=== PATIENT | male | born 1970 | race African-American/Black ===

== ENCOUNTER 2021-02-12 17:47 | Inpatient (IN) | payer OTHER ==
[2021-02-12] MEDS ORDERED: LACTATED RINGERS SOLUTION 1000 ML INFUS.BAG IV ONE (18:21)
[2021-02-12] MEDS ORDERED: ACETAMINOPHEN 500 MG TABLET (FP) PO ONE (18:34)
[2021-02-12] MEDS ORDERED: DEXAMETHASONE SOD PHOSPHATE 10 MG/1 ML VIAL IVPUSH ONE (18:38)
[2021-02-12] MEDS ORDERED: ACETAMINOPHEN 325 MG TABLET (FP) ONE (18:52)
[2021-02-12] MEDS ORDERED: DEXAMETHASONE SOD PHOSPHATE 10 MG/1 ML VIAL ONE (18:53)
[2021-02-12 18:58] LABS: VENOUS BASE EXCESS 1.9 mmol/L (-2-2); VENOUS O2 SATURATION 83.3 % (70-80); VENOUS PCO2 33.3 mmHg (38-52); VENOUS PH 7.486 (7.310-7.410)
[2021-02-12 19:03] LABS: BASO % 0.3 % (0-2.0); HEMATOCRIT 42.5 % (35.4-49); HEMOGLOBIN 14.5 GM/dL (11.7-16.9); MCH 28.3 pg (25.7-33.7); MEAN CELL VOLUME 83.1 fl (80-96); MONO % 6.8 % (3.8-10.2); NEUT % 84.9 % (42.8-82.8); PLATELET COUNT 185 10^3/uL (134-434); RBC 5.11 M/mm3 (4.00-5.60); RDW 14.7 % (11.9-15.9)
[2021-02-12 19:17] LABS: INR 1.13 (0.83-1.09); PROTHROMBIN TIME (PATIENT) 13.9 SEC (9.7-13.0)
[2021-02-12 19:20] LABS: ACTIVATED PTT 31.2 SECONDS (25.2-36.5)
[2021-02-12 20:47] LABS: CHLORIDE 101 mmol/L (98-107); SODIUM 135 mmol/L (136-145)
[2021-02-12 20:49] LABS: ALBUMIN 3.6 g/dl (3.4-5.0); ANION GAP 11 MMOL/L (8-16); BLOOD UREA NITROGEN 18.8 mg/dL (7-18); CO2 24 mmol/L (21-32)
[2021-02-12 20:50] LABS: GLUCOSE,RANDOM 112 mg/dL (74-106)
[2021-02-12 20:52] LABS: CREATININE 1.6 mg/dL (0.55-1.3); SGOT/AST 91 U/L (15-37); SGPT/ALT 52 U/L (13-61)
[2021-02-12 20:54] LABS: BILIRUBIN,TOTAL 0.3 mg/dL (0.2-1); TOT PROT 7.5 g/dl (6.4-8.2)
[2021-02-12 20:55] LABS: ALK PHOS 47 U/L (45-117)
[2021-02-12 20:56] LABS: LDH 476 U/L (87-246)
[2021-02-12] MEDS ORDERED: ACETAMINOPHEN 325 MG TABLET (FP) PO PRN (23:36)
[2021-02-13 00:02] LABS: MAGNESIUM 1.8 mg/dL (1.8-2.4)
[2021-02-13 00:19] VITALS: BMI 28.8
[2021-02-13] MEDS: guaiFENesin 200 MG/10 ML 10 ML UNIT-DOSE CUPS PO PRN ×2 (04:19→21:05)
[2021-02-13 08:54] LABS: BASO % 0.4 % (0-2.0); HEMATOCRIT 41.8 % (35.4-49); HEMOGLOBIN 14.2 GM/dL (11.7-16.9); MCH 28.7 pg (25.7-33.7); MEAN CELL VOLUME 84.3 fl (80-96); MEAN PLT VOLUME 9.2 fl (7.5-11.1); MONO % 8.5 % (3.8-10.2); NEUT % 74.1 % (42.8-82.8); PLATELET COUNT 201 10^3/uL (134-434); RBC 4.96 M/mm3 (4.00-5.60); WHITE BLOOD COUNT 6.9 K/mm3 (4.0-10.0)
[2021-02-13] MEDS: CHOLECALCIFEROL (VIT D3) 1,000 UNIT (25 MCG) TABLET PO SCH (10:21)
[2021-02-13] MEDS: LOSARTAN POTASSIUM 50 MG TABLET PO SCH (10:21)
[2021-02-13] MEDS: ASCORBIC ACID 500 MG TABLET (FP) PO SCH ×2 (10:21→21:05)
[2021-02-13] MEDS: DEXAMETHASONE SOD PHOSPHATE 4 MG/1 ML VIAL IVPUSH SCH (10:21)
[2021-02-13] MEDS: ENOXAPARIN NA (PORCINE) 40 MG/0.4 ML DISP.SYRIN SQ SCH (10:21)
[2021-02-13] MEDS: ZINC SULFATE 220 MG CAPSULE (FP) PO SCH (10:21)
[2021-02-13 10:54] LABS: CALCIUM 8.6 mg/dL (8.5-10.1)
[2021-02-13 10:55] LABS: ALBUMIN 3.2 g/dl (3.4-5.0); BLOOD UREA NITROGEN 17.4 mg/dL (7-18)
[2021-02-13 10:58] LABS: CREATININE 1.2 mg/dL (0.55-1.3)
[2021-02-13 10:59] LABS: BILIRUBIN,TOTAL 0.4 mg/dL (0.2-1)
[2021-02-13 11:00] LABS: TOT PROT 7.1 g/dl (6.4-8.2)
[2021-02-13] MEDS ORDERED: REMDESIVIR 200 MG in SODIUM CHLORIDE 250 ML IVPB ONE (15:35)
[2021-02-13] MEDS: BUDESONIDE/FORMETEROL FUMARATE 160/4.5 mcg INHALER IH SCH (21:05)
[2021-02-14] MEDS: guaiFENesin 200 MG/10 ML 10 ML UNIT-DOSE CUPS PO PRN ×2 (04:37→16:28)
[2021-02-14] MEDS: ALBUTEROL SO4 HFA INHALER IH PRN ×2 (04:43→16:34)
[2021-02-14 09:00] LABS: HEMATOCRIT 39.9 % (35.4-49); HEMOGLOBIN 13.2 GM/dL (11.7-16.9); MCH 27.8 pg (25.7-33.7); MCHC 33.1 g/dl (32.0-35.9); MEAN CELL VOLUME 84.2 fl (80-96); MEAN PLT VOLUME 9.3 fl (7.5-11.1); PLATELET COUNT 208 10^3/uL (134-434); RBC 4.75 M/mm3 (4.00-5.60); RDW 14.8 % (11.9-15.9); WHITE BLOOD COUNT 11.9 K/mm3 (4.0-10.0)
[2021-02-14 09:20] LABS: BLOOD UREA NITROGEN 17.9 mg/dL (7-18)
[2021-02-14 09:24] LABS: BILIRUBIN,TOTAL 0.3 mg/dL (0.2-1); TOT PROT 6.7 g/dl (6.4-8.2)
[2021-02-14] MEDS ORDERED: PT OWN MED DRAWER 7, Y5N ONE ×2 (09:26→15:35)
[2021-02-14] MEDS: LOSARTAN POTASSIUM 50 MG TABLET PO SCH (09:35)
[2021-02-14] MEDS: DEXAMETHASONE SOD PHOSPHATE 4 MG/1 ML VIAL IVPUSH SCH (09:35)
[2021-02-14] MEDS: ASCORBIC ACID 500 MG TABLET (FP) PO SCH ×2 (09:35→21:06)
[2021-02-14] MEDS: SODIUM CHLORIDE 0.45% 1,000 ML IV SCH ×2 (09:35→22:39)
[2021-02-14] MEDS: ZINC SULFATE 220 MG CAPSULE (FP) PO SCH (09:35)
[2021-02-14] MEDS: CHOLECALCIFEROL (VIT D3) 1,000 UNIT (25 MCG) TABLET PO SCH (09:35)
[2021-02-14] MEDS: BUDESONIDE/FORMETEROL FUMARATE 160/4.5 mcg INHALER IH SCH ×2 (09:36→21:06)
[2021-02-14] MEDS: ENOXAPARIN NA (PORCINE) 40 MG/0.4 ML DISP.SYRIN SQ SCH (09:36)
[2021-02-14] MEDS ORDERED: ACETAMINOPHEN 325 MG TABLET (FP) PO PRN (10:36)
[2021-02-14] MEDS: REMDESIVIR 100 MG in SODIUM CHLORIDE 250 ML IVPB SCH (15:43)
[2021-02-15 09:43] LABS: HEMATOCRIT 39.8 % (35.4-49); HEMOGLOBIN 13.2 GM/dL (11.7-16.9); MCH 27.8 pg (25.7-33.7); MCHC 33.1 g/dl (32.0-35.9); MEAN PLT VOLUME 9.1 fl (7.5-11.1); PLATELET COUNT 247 10^3/uL (134-434); RBC 4.74 M/mm3 (4.00-5.60); RDW 15.2 % (11.9-15.9)
[2021-02-15] MEDS: CHOLECALCIFEROL (VIT D3) 1,000 UNIT (25 MCG) TABLET PO SCH (09:52)
[2021-02-15] MEDS: ENOXAPARIN NA (PORCINE) 40 MG/0.4 ML DISP.SYRIN SQ SCH (09:52)
[2021-02-15] MEDS: LOSARTAN POTASSIUM 50 MG TABLET PO SCH (09:52)
[2021-02-15] MEDS: ZINC SULFATE 220 MG CAPSULE (FP) PO SCH (09:52)
[2021-02-15] MEDS: ASCORBIC ACID 500 MG TABLET (FP) PO SCH ×2 (09:52→21:13)
[2021-02-15] MEDS: BUDESONIDE/FORMETEROL FUMARATE 160/4.5 mcg INHALER IH SCH ×2 (09:53→21:14)
[2021-02-15] MEDS: DEXAMETHASONE SOD PHOSPHATE 4 MG/1 ML VIAL IVPUSH SCH (09:53)
[2021-02-15 09:58] LABS: BLOOD UREA NITROGEN 16.6 mg/dL (7-18)
[2021-02-15 09:59] LABS: CALCIUM 8.1 mg/dL (8.5-10.1)
[2021-02-15 10:00] LABS: ALBUMIN 2.9 g/dl (3.4-5.0)
[2021-02-15 10:03] LABS: CREATININE 0.9 mg/dL (0.55-1.3)
[2021-02-15 10:04] LABS: BILIRUBIN,TOTAL 0.4 mg/dL (0.2-1); TOT PROT 6.8 g/dl (6.4-8.2)
[2021-02-15] MEDS: ALBUTEROL SO4 HFA INHALER IH PRN (12:03)
[2021-02-15] MEDS: REMDESIVIR 100 MG in SODIUM CHLORIDE 250 ML IVPB SCH (16:24)
[2021-02-15] MEDS: SODIUM CHLORIDE 0.45% 1,000 ML IV SCH (17:30)
[2021-02-15] MEDS: guaiFENesin 200 MG/10 ML 10 ML UNIT-DOSE CUPS PO PRN (21:16)
[2021-02-15 22:21] VITALS: BP 107/69; PULSE 86; TEMP 98
== END 2021-02-15 11:00 | disposition home or self-care (01) | DRG 137 ==
LOC: JER 17:47 → JERBED 21:02 → J8W 23:42
PROVIDERS: ADMIT Internal Medicine; ATTEND Internal Medicine
PROC: XW033E5 Introduction of Remdesivir Anti-infective into Peripheral Vein, Percutaneous Approach, New Technology Group 5 (ICD-10-PCS; principal; 2021-02-13)
DX: U07.1 COVID-19 (principal); R09.02 Hypoxemia; I10 Essential (primary) hypertension; J45.20 Mild intermittent asthma, uncomplicated; N17.9 Acute kidney failure, unspecified; M62.82 Rhabdomyolysis; E66.3 Overweight; Z68.28 Body mass index [BMI] 28.0-28.9, adult; R94.5 Abnormal results of liver function studies
CPT/HCPCS: 36415; 71045-TC-FY; 71046-TC-FY; 80053; 82550; 82553; 82728; 82803; 83605; 83615; 83735; 84484; 85025; 85027; 85379; 85610; 85730; 86140; 86769; 87040; 87804; 87899; 93005; 93010; 94761; 99285-25; C9399; C9803; J1100; U0003; U0005

== ENCOUNTER 2022-04-12 09:31 | Emergency (ER) | payer BC, OTHER ==
[2022-04-12 10:04] VITALS: BP 122/64; PULSE 104; RESP 16; TEMP 97.7; BMI 28.5
[2022-04-12] MEDS ORDERED: predniSONE 20 MG TABLET (UD) PO ONE (10:40)
[2022-04-12] MEDS ORDERED: diphenhydrAMINE HCL 50 MG CAPSULE PO ONE (10:41)
[2022-04-12] MEDS ORDERED: predniSONE 20 MG TABLET (UD) ONE (10:42)
[2022-04-12] MEDS ORDERED: diphenhydrAMINE HCL 25 MG CAPSULE (FP) PO ONE (10:42)
== END 2022-04-12 10:52 | disposition home or self-care (01) ==
LOC: JERFT 09:31
DX: L20.84 Intrinsic (allergic) eczema (principal)
CPT/HCPCS: 99283-25

== ENCOUNTER 2023-09-16 10:37 | Emergency (ER) | payer BC, OTHER ==
[2023-09-16 10:42] VITALS: BP 148/92; PULSE 85; RESP 18; TEMP 98.1; BMI 28.5
[2023-09-16] MEDS ORDERED: ALBUTEROL SO4 2.5/IPRATROPIUM 0.5 INH SOL 3 ML VIAL.NEB. NEB ONE (12:18)
[2023-09-16] MEDS ORDERED: DEXAMETHASONE 4 MG TABLET (FP) ONE (12:19)
[2023-09-16] MEDS: DEXAMETHASONE 4 MG TABLET (FP) PO ONE (12:24)
[2023-09-16] MEDS: ALBUTEROL SO4 2.5/IPRATROPIUM 0.5 INH SOL 3 ML VIAL.NEB. NEB ONE ×2 (12:24)
[2023-09-16 12:57] LABS: BASO % 1.1 % (0-2.0); EOS % 5.5 % (0-4.5); HEMATOCRIT 43.5 % (35.4-49); HEMOGLOBIN 14.3 GM/dL (11.7-16.9); LYMPH % 22.2 % (8-40); MCHC 32.9 g/dl (32.0-35.9); MEAN CELL VOLUME 85.1 fl (80-96); MEAN PLT VOLUME 8.4 fl (7.5-11.1); MONO % 13.8 % (3.8-10.2); NEUT % 57.4 % (42.8-82.8); PLATELET COUNT 272 10^3/uL (134-434); RBC 5.12 M/mm3 (4.00-5.60); RDW 15.6 % (11.9-15.9); WHITE BLOOD COUNT 8.5 K/mm3 (4.0-10.0)
[2023-09-16 13:21] LABS: POTASSIUM 3.7 mmol/L (3.5-5.1)
[2023-09-16 13:23] LABS: ALBUMIN 4.1 g/dl (3.4-5.0); CALCIUM 9.4 mg/dL (8.5-10.1)
[2023-09-16 13:24] LABS: BLOOD UREA NITROGEN 11.5 mg/dL (7-18)
[2023-09-16 13:28] LABS: BILIRUBIN,TOTAL 0.4 mg/dL (0.2-1); TOT PROT 7.4 g/dl (6.4-8.2)
[2023-09-16] MEDS ORDERED: ALBUTEROL SO4 HFA INHALER IH ONE (14:12)
[2023-09-16] MEDS: ALBUTEROL SO4 HFA INHALER IH ONE (14:19)
== END 2023-09-16 14:41 | disposition home or self-care (01) ==
LOC: JERFT 10:37
PROC: 3E0F7GC Introduction of Other Therapeutic Substance into Respiratory Tract, Via Natural or Artificial Opening (ICD-10-PCS; principal; 2023-09-16)
PROC: 3E0F7GC Introduction of Other Therapeutic Substance into Respiratory Tract, Via Natural or Artificial Opening (ICD-10-PCS; 2023-09-16)
DX: R07.89 Other chest pain (principal); J45.901 Unspecified asthma with (acute) exacerbation; J20.5 Acute bronchitis due to respiratory syncytial virus; Z20.822 Contact with and (suspected) exposure to COVID-19
CPT/HCPCS: 0241U-QW; 36415; 71046-TC-FY; 80053; 84484; 85025; 85379; 93005; 93010; 99285-25